=== PATIENT | female | born 1950 | race Caucasian/White ===

== ENCOUNTER 2019-12-14 10:14 | Day surgery (SDC) | payer MEDICARE ==
[~2019-12-14] VITALS: Ht 162.6 cm; Wt 77.3 kg
[2019-12-14 10:22] VITALS: BP 176/104
[2019-12-14] MEDS ORDERED: MIDAZolam 5mg/5ml vial ONE (10:37)
[2019-12-14] MEDS ORDERED: LIDOcaine Viscous 15ml cup ONE (10:37)
[2019-12-14] MEDS ORDERED: fentaNYL/PF 50MCG/1 ML 2ML syringe ONE (10:37)
[2019-12-14] MEDS ORDERED: B-12 PO (10:45)
[2019-12-14] MEDS ORDERED: [UNRECOGNIZED DRUG - OTHER] PO (10:47)
[2019-12-14 11:02] VITALS: BP 142/103
[2019-12-14 11:12] VITALS: BP 154/93
[2019-12-14 11:22] VITALS: BP 150/80
== END 2019-12-14 11:35 | disposition home or self-care (01) ==
LOC: GI LAB 10:14
PROVIDERS: ATTEND Internal Medicine Gastroenterology
DX: R10.9 Unspecified abdominal pain (principal); K22.8 Other specified diseases of esophagus; K44.9 Diaphragmatic hernia without obstruction or gangrene; K29.50 Unspecified chronic gastritis without bleeding; K20.8 Other esophagitis; K22.70 Barrett's esophagus without dysplasia; Z79.899 Other long term (current) drug therapy
CPT/HCPCS: 43239; G0500; J2250; J3010; J7040; 99152; A4620

== ENCOUNTER 2020-04-10 03:55 | Emergency (ER) | payer MEDICARE ==
[~2020-04-10] VITALS: Ht 162.6 cm; Wt 81.7 kg
[~2020-04-10 03:55] MED LIST: B-12 PO; [UNRECOGNIZED DRUG - OTHER] PO
[2020-04-10] MEDS ORDERED: normal saline 1000ML IV soln IVB ONE (04:05)
[2020-04-10] MEDS ORDERED: famotidine/PF 10 mg/ml inj IV ONE (04:05)
[2020-04-10] MEDS ORDERED: pantoprazole 40 MG vial IV ONE (04:05)
[2020-04-10] MEDS: ondansetron/PF 4mg/2ml inj IV ONE ×2 (04:24→04:29)
[2020-04-10] MEDS ORDERED: OMEP20CA15 PO (04:30)
[2020-04-10] MEDS ORDERED: SUCR1TAB34 PO (04:30)
[2020-04-10] MEDS ORDERED: FAMO20TA44 PO (04:30)
[2020-04-10] MEDS ORDERED: ONDA4TAB6 PO (04:30)
[2020-04-10 04:46] LABS: ALANINE AMINOTRANSFERASE 23 U/L (12-78); ALBUMIN 3.7 G/DL (3.4-5.0); ALBUMIN/GLOBULIN RATIO 1.1 (1.1-1.5); ALKALINE PHOSPHATASE 82 IU/L (46-116); ANION GAP 12 (8-16); ASPARTATE AMINO TRANSFERASE 23 U/L (10-37); BILIRUBIN,TOTAL 0.6 MG/DL (0.1-1.0); BLOOD UREA NITROGEN 7 MG/DL (7-18); BUN/CREATININE RATIO 9.3 (6.6-38.0); CALCIUM 8.9 MG/DL (8.5-10.1); CHLORIDE 103 MMOL/L (99-107); CREATININE 0.75 MG/DL (0.40-0.90); ETHANOL 0.035 GM/DL (0.0-0.010); GLUCOSE 119 MG/DL (70-104); POTASSIUM 3.6 MMOL/L (3.5-5.1); SODIUM 139 MMOL/L (135-145); TOTAL PROTEIN 7.1 G/DL (6.4-8.2); eGFR 77 ML/MIN
[2020-04-10 04:50] LABS: BASOPHILS # (AUTO) 0.1 X10'3 (0-0.2); BASOPHILS % (AUTO) 0.7 % (0-1); COLOR,URINE YELLOW (Yellow); EOSINOPHILS # (AUTO) 0.2 X10'3 (0-0.9); EOSINOPHILS % (AUTO) 1.9 % (0-6); GLUCOSE, URINE NEGATIVE (Neg); HEMATOCRIT 46.4 % (35.0-45.0); HEMOGLOBIN 16.1 g/dl (12.0-16.0); KETONES,URINE NEGATIVE (Neg); LEUKOCYTE ESTERASE ,URINE MODERATE (Neg); LYMPHOCYTES # (AUTO) 1.6 X10'3 (1.1-4.8); LYMPHOCYTES % (AUTO) 17.9 % (21-51); MEAN CORPUSCULAR HEMOGLOBIN 32.7 PG (27.0-31.0); MEAN CORPUSCULAR HGB CONC 34.7 g/dL (33.0-36.5); MEAN CORPUSCULAR VOLUME 94.3 FL (78-98); MEAN PLATELET VOLUME 6.9 FL (7.4-10.4); MONOCYTES # (AUTO) 0.7 X10'3 (0-0.9); MONOCYTES % (AUTO) 8.2 % (2-12); NEUTROPHILS # (AUTO) 6.4 X10'3 (1.8-7.7); NEUTROPHILS % (AUTO) 71.3 % (42-75); NITRITES, URINE NEGATIVE (Neg); OCCULT BLOOD,URINE MODERATE (Neg); PH,URINE 6.5 (4.8-8.0); PLATELET COUNT 421 X10'3 (140-440); PROTEIN,URINE NEGATIVE (Neg); RED BLOOD COUNT 4.92 X10'6 (4.20-5.60); RED CELL DISTRIBUTION WIDTH 14.3 % (11.5-14.5); UROBILINOGEN,URINE 0.2 E.U/dL (0.2-1.0); WHITE BLOOD COUNT 8.9 X10'3 (4.5-11.0)
[2020-04-10 04:55] LABS: CLARITY,URINE SLIGHTLY CLOUDY (Clear); UA COLLECTION TYPE CLN CATCH MIDSTREAM
[2020-04-10 04:56] LABS: BACTERIA,URINE FEW /HPF (Neg); RBC,URINE 0-2 /HPF (0-2); SQUAMOUS EPITHELIAL CELL,UR FEW /LPF (FEW); WBC CLUMPS,URINE FEW /HPF (NEGATIVE); WBC,URINE 20-30 /HPF (0-4)
[2020-04-10] MEDS ORDERED: CEPH-572 PO (05:47)
[2020-04-10 06:01] VITALS: BP 119/81
== END 2020-04-10 06:04 | disposition home or self-care (01) ==
LOC: ER 03:56
DX: K29.00 Acute gastritis without bleeding (principal); R10.13 Epigastric pain; F10.920 Alcohol use, unspecified with intoxication, uncomplicated; N39.0 Urinary tract infection, site not specified; R11.10 Vomiting, unspecified; R07.0 Pain in throat; Z72.89 Other problems related to lifestyle; Z79.2 Long term (current) use of antibiotics; Z79.899 Other long term (current) drug therapy
CPT/HCPCS: 36415; 71045; 80053; 80320; 81001; 84484; 85025; 87088; 93005; 96374; 96375; 99285; C9113; J3490; J7030; J2405

== ENCOUNTER 2020-12-16 05:44 | Observation (INO) | payer MEDICARE ==
[2020-12-08 16:41] LABS: BASOPHILS % (AUTO) 0.6 % (0-1); EOSINOPHILS # (AUTO) 0.1 X10'3 (0-0.9); EOSINOPHILS % (AUTO) 1.2 % (0-6); LYMPHOCYTES # (AUTO) 1.5 X10'3 (1.1-4.8); LYMPHOCYTES % (AUTO) 20.4 % (21-51); MEAN CORPUSCULAR HEMOGLOBIN 34.4 PG (27.0-31.0); MEAN CORPUSCULAR HGB CONC 34.9 g/dL (33.0-36.5); MEAN CORPUSCULAR VOLUME 98.5 FL (78-98); MONOCYTES # (AUTO) 0.7 X10'3 (0-0.9); MONOCYTES % (AUTO) 9.4 % (2-12); NEUTROPHILS # (AUTO) 5.1 X10'3 (1.8-7.7); NEUTROPHILS % (AUTO) 68.4 % (42-75); PRE OP HEMATOCRIT 49.9 % (35.0-45.0); PRE OP HEMOGLOBIN 17.4 g/dL (12.0-16.0); PRE OP PLATELET COUNT 374 X10'3 (140-440); RED BLOOD COUNT 5.07 X10'6 (4.20-5.60); RED CELL DISTRIBUTION WIDTH 14.1 % (11.5-14.5)
[2020-12-08 16:53] LABS: ALBUMIN 3.6 G/DL (3.4-5.0); ALKALINE PHOSPHATASE 90 IU/L (46-116); BLOOD UREA NITROGEN 5 MG/DL (7-18); BUN/CREATININE RATIO 6.8 (6.6-38.0); CALCIUM 9.3 MG/DL (8.5-10.1); CHLORIDE 105 MMOL/L (99-107); CREATININE 0.74 MG/DL (0.40-0.90); PRE OP ALT 49 U/L (30-65); PRE OP ANION GAP 11 (8-16); PRE OP AST 51 U/L (10-37); PRE OP BILIRUB, TOTAL 0.8 MG/DL (0.0-1.0); PRE OP GLUCOSE 111 MG/DL (70-104); PRE OP SODIUM 144 MMOL/L (135-145); TOTAL CARBON DIOXIDE 28.1 MMOL/L (24-32); TOTAL PROTEIN 7.2 G/DL (6.4-8.2); eGFR 78 ML/MIN
[2020-12-08 16:54] LABS: PRE OP POTASSIUM 2.9 MMOL/L (3.4-5.1)
[2020-12-08 17:00] LABS: PRE OP PROTIME 10.7 SECONDS (9.0-12.0)
[~2020-12-16] VITALS: Ht 162.6 cm; Wt 74.8 kg
[2020-12-16] VITALS (26 sets, daily range): BP systolic 117–177; BP diastolic 66–95
[~2020-12-16 05:44] MED LIST changes: -B-12 PO; +NO HOME MEDS; -[UNRECOGNIZED DRUG - OTHER] PO; +albuterol 2.5 MG/3 ML nebule NEB ONE; +famotidine 20mg tablet PO ONE; +gentamicin inj 310 MG in normal saline 100ml IV soln 92.25 ML IV ONE
[2020-12-16] MEDS ORDERED: ampicillin inj 2 GM in normal saline 100ml IV soln 100 ML IV ONE (06:00)
[2020-12-16] MEDS: ringers solution, lacted 1,000 ML IV SCH ×2 (06:24→14:27)
[2020-12-16] MEDS ORDERED: iohexol 300 MG/1 ML 50ml polymer ONE (07:10)
[2020-12-16] MEDS ORDERED: methylene blue (5mg/ml) 50mg/10ml ampul IV ONE (07:10)
[2020-12-16 07:30] LABS: ALANINE AMINOTRANSFERASE 38 U/L (12-78); ALBUMIN 3.6 G/DL (3.4-5.0); ALKALINE PHOSPHATASE 77 IU/L (46-116); ANION GAP 11 (8-16); ASPARTATE AMINO TRANSFERASE 31 U/L (10-37); BILIRUBIN,TOTAL 1.3 MG/DL (0.1-1.0); BLOOD UREA NITROGEN 7 MG/DL (7-18); BUN/CREATININE RATIO 9.5 (6.6-38.0); CALCIUM 9.1 MG/DL (8.5-10.1); CHLORIDE 104 MMOL/L (99-107); CREATININE 0.74 MG/DL (0.40-0.90); GLUCOSE 120 MG/DL (70-104); POTASSIUM 3.4 MMOL/L (3.5-5.1); SODIUM 141 MMOL/L (135-145); TOTAL CARBON DIOXIDE 26.4 MMOL/L (24-32); TOTAL PROTEIN 7.1 G/DL (6.4-8.2); eGFR 78 ML/MIN
[2020-12-16] MEDS ORDERED: sevoflurane 250ml liquid IH ONE (07:41)
[2020-12-16] MEDS ORDERED: acetaminophen 1000 MG/100ml vial IV ONE (07:41)
[2020-12-16] MEDS ORDERED: midazolam 2 mg/2 ml injection ONE (07:45)
[2020-12-16] MEDS ORDERED: fentaNYL /PF 50mcg/ml 5ml ampule ONE (07:48)
[2020-12-16] MEDS ORDERED: proCHLORperazine 10 MG/2 ml inj IV PRN (09:25)
[2020-12-16] MEDS ORDERED: ondansetron/PF 4mg/2ml inj IV PRN ×2 (09:25→10:00)
[2020-12-16] MEDS ORDERED: ringers solution, lacted 1,000 ML IV SCH (09:25)
[2020-12-16] MEDS ORDERED: meperidine/PF 25mg/ml syringe IV PRN ×2 (09:25)
[2020-12-16] MEDS ORDERED: morphine 2 MG/ML inj. syringe IV PRN (09:25)
[2020-12-16] MEDS ORDERED: morphine 4 MG/ML inj SYRINge IV PRN (09:25)
[2020-12-16] MEDS ORDERED: sugammadex 200mg/2ml injection IV ONE (09:38)
--- NOTE | 2020-12-16 09:42 | NUR ---
Received from OR via [facility] , accompanied by Anesthesiologist GABRIELE and report given by Anesthesiolgist. PATIENT WITH 10F PORT TO LEFT POSTERIOR TRUNK. DRESSING IS CDI. MANCERA CATHETER IS BLOODY IN [facility]. MD GARCIA AWARE. 10L MASK ON WITH 98% SATURATIONS. VSS. Addendum: 12/16/20 at 0957 by Rito Villalobos RN, RN Amended: Links added.
[2020-12-16] MEDS: meperidine/PF 25mg/ml syringe IV PRN ×2 (09:59→14:30)
[2020-12-16] MEDS ORDERED: opium/belladonna alkaloids No. 15A 30mg rectal suppository RC PRN (10:00)
[2020-12-16] MEDS ORDERED: oxybutynin 5mg tablet PO PRN (10:00)
[2020-12-16] MEDS ORDERED: HYDROmorphone 1 mg/ml syringe IV PRN (10:00)
[2020-12-16] MEDS ORDERED: HYDROcodone/acetaminophen 10/325mg tab PO PRN ×2 (10:00)
[2020-12-16] MEDS ORDERED: rocuronium 10mg/ml inj IV ONE (10:04)
[2020-12-16] MEDS ORDERED: propofol inj 20 ML IV ONE (10:04)
[2020-12-16] MEDS ORDERED: neostigmine methylsulfate 1 MG/ML 10ml vial ONE (10:04)
[2020-12-16] MEDS ORDERED: LIDOcaine 2% (20mg/ml) 5ml vial ONE (10:04)
[2020-12-16] MEDS ORDERED: glycopyrrolate 0.2mg/ml inj ONE (10:04)
[2020-12-16] MEDS ORDERED: dexamethasone sod phosphate 4mg/ml inj. ONE (10:04)
[2020-12-16] MEDS ORDERED: ondansetron/PF 4mg/2ml inj ONE (10:04)
--- NOTE | 2020-12-16 12:22 | NUR ---
ALL CRITERIA FOR TRANSFER TO THE FLOOR HAS BEEN ACHIEVED. REPORT GIVEN AND ALL QUESTIONS ANSWERED, VSS. BED LOW 2 RAILS UP, CALL LIGHT PRESENT AND PATIENT HOOKED UP TO ALL LINES AND VSS. PATIENTS RN PRESENT TO ACCEPT CARE. ELLE DIAZ PRESENT TO ACCEPT PATIENT. 40 CC RED COLORED URINE PRESENT IN CATHETER. LEFT SIDE POSTERIOR BACK DRESSING IS STILL CDI. 3 PERSON PASSIVE TRANSFER TO BED FROM [facility] WITH SLIDER BOARD. VSS. STATES IRRITATION TO URETHRA FROM CATHETER. CARE TURNED OVER. Addendum: 12/16/20 at 1230 by Rito Robles - ELLE ALMEIDA Amended: Links added.
--- NOTE | 2020-12-16 13:00 | NUR ---
Patient in room [facility]. I have received report from snehal ALMEIDA and had the opportunity to ask questions and assume patient care. patient orientated to room alert and orientated. dressing to left upper back CDI. Catheter draining reddish urine . patient states she doesnt want anything for pain usually takes her 'fireball" to relax herself at home. will continue to monitor
[2020-12-16] MEDS ORDERED: potassium Cl 20 mEq SR tablet PO PRN ×2 (13:10)
[2020-12-16] MEDS ORDERED: haloperidol lactate 5mg/ml inj IM PRN (13:10)
[2020-12-16] MEDS ORDERED: magnesium 4gm in 100ml NS 100 ML IV PRN (13:10)
[2020-12-16] MEDS ORDERED: mag hydrox/Alum hydrox/simeth 30ml oral suspension PO PRN (13:10)
[2020-12-16] MEDS ORDERED: magnesium Cl slow-release 64mg tablet PO PRN (13:10)
[2020-12-16] MEDS ORDERED: haloperidol 5mg tablet PO PRN (13:10)
[2020-12-16] MEDS ORDERED: thiamine inj. 100 MG in normal saline 100ml IV soln 100 ML IV ONE (13:10)
[2020-12-16] MEDS ORDERED: potassium Cl 40MEQ/1/2NS 520ml 520 ML IV PRN (13:10)
[2020-12-16] MEDS ORDERED: LORazepam 2 mg/ml vial IV PRN (13:10)
[2020-12-16] MEDS: potassium cl 20mEq in 1/2 NS 1,000 ML IV SCH ×2 (14:29→18:00)
--- NOTE | 2020-12-16 17:09 | NUR ---
1200mls of urine drained. progressively clearer. still reddish stain. will continue to monitor
--- NOTE | 2020-12-16 18:30 | NUR ---
Problems reprioritized. Patient report given, questions answered & plan of care reviewed with Carlos ALMEIDA.
[2020-12-16] MEDS ORDERED: enoxaparin 40mg/0.4ml syringe SQ SCH (20:00)
[2020-12-16] MEDS: K and/or MAG REPLACEMENT MC SCH (20:07)
[2020-12-16] MEDS: potassium 20mEq/D5LR 1,000 ML IV SCH (21:45)
[2020-12-17] VITALS: BP 176/84
--- NOTE | 2020-12-17 00:52 | NUR ---
Patient reported extreme pain and bloating. Stated that she needed to sit on the toilet. Upon arrival to the toilet, moseley catheter found displaced, balloon deflated but intact. Patient refused replacement of moseley catheter. Patient increasingly agitated with pain and verbalized "nobody believes what is going on". RN offered pain medication, patient refused stating that it makes her pain worse. RN offered ativan and patient refused and started yelling. Patient accused staff of "trying to lock me here so you can take my property. Its worth a million dollars and you're trying to take it." RN stated to the patient that she was not being locked here and can leave against medical advice if she so choose. RN verbalized the possible medical complications that can arise from leaving too early and patient verbalized understanding and desire to stay the night. Patient stated that she didn't want medications, she just wanted to have her pain taken seriously. RN verbalized understanding and explored other options for pain management. Patient stated that if we wouldn't let her drink Fireball, that she would just drink warm water and "lose myself in the TV."
[2020-12-17] MEDS: potassium 20mEq/D5LR 1,000 ML IV SCH (05:45)
[2020-12-17 07:35] VITALS: BP 156/69
[2020-12-17 07:36] LABS: BASOPHILS # (AUTO) 0.1 X10'3 (0-0.2); BASOPHILS % (AUTO) 0.5 % (0-1); EOSINOPHILS # (AUTO) 0.1 X10'3 (0-0.9); EOSINOPHILS % (AUTO) 0.5 % (0-6); HEMATOCRIT 44.2 % (35.0-45.0); HEMOGLOBIN 15.2 g/dl (12.0-16.0); LYMPHOCYTES # (AUTO) 2.1 X10'3 (1.1-4.8); LYMPHOCYTES % (AUTO) 16.3 % (21-51); MEAN CORPUSCULAR HEMOGLOBIN 34.2 PG (27.0-31.0); MEAN CORPUSCULAR HGB CONC 34.5 g/dL (33.0-36.5); MEAN CORPUSCULAR VOLUME 99.2 FL (78-98); MEAN PLATELET VOLUME 7.4 FL (7.4-10.4); MONOCYTES # (AUTO) 1.2 X10'3 (0-0.9); NEUTROPHILS # (AUTO) 9.5 X10'3 (1.8-7.7); NEUTROPHILS % (AUTO) 73.7 % (42-75); PLATELET COUNT 338 X10'3 (140-440); RED BLOOD COUNT 4.45 X10'6 (4.20-5.60); RED CELL DISTRIBUTION WIDTH 14.1 % (11.5-14.5); WHITE BLOOD COUNT 12.9 X10'3 (4.5-11.0)
[2020-12-17] MEDS: K and/or MAG REPLACEMENT MC SCH (08:00)
[2020-12-17] MEDS ORDERED: multivitamins, therapeutics tablet PO SCH (08:00)
[2020-12-17] MEDS ORDERED: thiamine 100mg tablet PO SCH (08:00)
[2020-12-17] MEDS ORDERED: folic acid 1mg tablet PO SCH (08:00)
[2020-12-17 08:06] LABS: ALANINE AMINOTRANSFERASE 30 U/L (12-78); ALBUMIN 3.1 G/DL (3.4-5.0); ALKALINE PHOSPHATASE 65 IU/L (46-116); AMYLASE 82 U/L (25-115); ANION GAP 11 (8-16); ASPARTATE AMINO TRANSFERASE 20 U/L (10-37); BILIRUBIN,TOTAL 1.4 MG/DL (0.1-1.0); BLOOD UREA NITROGEN 7 MG/DL (7-18); BUN/CREATININE RATIO 9.5 (6.6-38.0); CALCIUM 8.8 MG/DL (8.5-10.1); CHLORIDE 105 MMOL/L (99-107); CREATININE 0.74 MG/DL (0.40-0.90); GLUCOSE 92 MG/DL (70-104); LIPASE 458 U/L (73-393); MAGNESIUM 1.7 MG/DL (1.5-2.4); PHOSPHORUS 3.2 MG/DL (2.3-4.5); POTASSIUM 3.7 MMOL/L (3.5-5.1); SODIUM 140 MMOL/L (135-145); TOTAL CARBON DIOXIDE 23.7 MMOL/L (24-32); TOTAL PROTEIN 6.2 G/DL (6.4-8.2); eGFR 78 ML/MIN
--- NOTE | 2020-12-17 11:15 | NUR ---
patient stable and appropriate for discharge home with son. IV removed, all belongings taken from room. No new prescriptions. All discharge education and instructions have been given and reviewed with patient, all questions answered.
[2020-12-18] MEDS ORDERED: docusate sod 250mg capsule PO SCH (08:00)
[2020-12-18] MEDS ORDERED: LORazepam 1 MG tablet PO PRN (13:10)
[2020-12-18] MEDS ORDERED: LORazepam 2 mg/ml vial IV PRN (13:10)
--- NOTE | 2020-12-19 16:08 | NUR ---
CASE MANAGEMENT DISCHARGE FOLLOW UP: Spoke with pt via telephone. Pt reports that she is doing okay, that pain level is tolerable. Denies s/sx of infection, SOB, weakness. She states that her activity level is good, that she is getting up and taking care of her animals geese/chickens/dogs, following MD orders. Verbalizes understanding of s/sx requiring further evaluation/emergent assistance. Pt, she states that during hospitalization s/p procedure she was having difficulty breathing and she told staff that she "couldn't breathe", but she feels that no on listened to her, she is very frustrated about this experience. Pt states that she is much improved now, breathing fine. Pt verbalizes compliance with MD discharge instructions. Pt verbalizes understanding of the importance in making/keeping follow-up appointments. Pt states no further questions/concerns at this time.
[2020-12-20] MEDS ORDERED: LORazepam 1 MG tablet PO PRN (13:10)
[2020-12-20] MEDS ORDERED: LORazepam 2 mg/ml vial IV PRN (13:10)
== END 2020-12-17 11:15 | disposition home or self-care (01) ==
LOC: PAS 05:44 → SUR 3N 09:57
PROVIDERS: ADMIT Urology; ATTEND Urology
DX: N20.0 Calculus of kidney (principal); Z20.828 Contact with and (suspected) exposure to other viral communicable diseases; E87.6 Hypokalemia; I25.2 Old myocardial infarction; I48.91 Unspecified atrial fibrillation; F17.200 Nicotine dependence, unspecified, uncomplicated; F10.10 Alcohol abuse, uncomplicated; Z90.49 Acquired absence of other specified parts of digestive tract; Z79.899 Other long term (current) drug therapy; Z91.030 Bee allergy status
CPT/HCPCS: 36415; 50693; 52356; 71046; 80053; 82150; 82948; 83690; 83735; 84100; 85025; 85610; 85730; 86885; 86900; 86901; 87635; 88341; 93005; 94640; 96365; 96366; 96368; 96372; 96375; C1729; C1758; C1769; C1894; C2617; C2628; C9399; G0378; J0131; J0290; J1100; J1580; J2001; J2175; J2250; J2405; J2704; J2710; J3010; J3411; J7030; J7120; Q9967; Q9968; 76000; 88309; 88342; A4338; A4355; A4402; A4618; A6449; A7000; J1650; J3480; J3490

== ENCOUNTER 2023-07-04 08:36 | Day surgery (SDC) | payer MEDICARE ==
[~2023-07-04] VITALS: Ht 162.6 cm; Wt 68.2 kg
[~2023-07-04 08:36] MED LIST changes: -albuterol 2.5 MG/3 ML nebule NEB ONE; -famotidine 20mg tablet PO ONE; -gentamicin inj 310 MG in normal saline 100ml IV soln 92.25 ML IV ONE
[2023-07-04] MEDS ORDERED: ACET-1015 PO (09:31)
[2023-07-04] MEDS ORDERED: PROM12.574 RC (09:31)
[2023-07-04] MEDS ORDERED: DIAZ5TAB4 PO (09:31)
[2023-07-04] MEDS ORDERED: FLO0.4C PO (09:31)
[2023-07-04] MEDS ORDERED: GABA300S3 (09:31)
[2023-07-04] MEDS ORDERED: THIA100T70 PO (09:31)
[2023-07-04] MEDS ORDERED: MAGN250T11 PO (09:31)
[2023-07-04] MEDS ORDERED: POTA-366 PO (09:31)
[2023-07-04] MEDS ORDERED: FOLI1TAB27 PO (09:31)
[2023-07-04] MEDS ORDERED: PANT-47 PO (09:31)
[2023-07-04 09:43] VITALS: BP 118/80; PULSE 87; RESP 16
[2023-07-04] MEDS ORDERED: fentaNYL/PF 50MCG/1 ML 2ML syringe ONE ×2 (09:51→10:42)
[2023-07-04] MEDS ORDERED: MIDAZolam 1 MG/ML 5ML VIAL ONE (09:51)
[2023-07-04] MEDS ORDERED: LIDOcaine Viscous 15ml cup ONE (09:51)
[2023-07-04 11:10] VITALS: BP 102/54; PULSE 66; RESP 14; O2SAT 100
[2023-07-04 11:20] VITALS: BP 105/70; PULSE 64; RESP 14; O2SAT 98
[2023-07-04 11:30] VITALS: BP 106/69; PULSE 58; RESP 15; O2SAT 98
[2023-07-04 11:40] VITALS: BP 111/69; PULSE 59; RESP 15; O2SAT 97
== END 2023-07-04 12:00 | disposition home or self-care (01) ==
LOC: GI LAB 08:36
PROVIDERS: ATTEND Internal Medicine Gastroenterology
DX: R19.4 Change in bowel habit (principal); R63.4 Abnormal weight loss; R13.14 Dysphagia, pharyngoesophageal phase; D12.2 Benign neoplasm of ascending colon; K63.5 Polyp of colon; K57.30 Diverticulosis of large intestine without perforation or abscess without bleeding; K20.80 Other esophagitis without bleeding; K22.2 Esophageal obstruction; F17.210 Nicotine dependence, cigarettes, uncomplicated
CPT/HCPCS: 43239; 43248; 45385; 99153; C1889; G0500; J2250; J3010; J7030; Z7512; 88305; 99152; A4615; A4620; C1769